=== PATIENT | female | born 1975 | race Hispanic/Latino ===

== ENCOUNTER → 2018-04-20 08:26 | Outpatient (CLI) | payer OTHER, SELFPAY ==
--- NOTE | 2018-04-20 08:29 | DI.US.S_ITS ---
PROCEDURE: US PELVIC COMPLETE INDICATIONS: LEFT OVARIAN CYST ON CT TECHNIQUE: Real-time scanning was performed of the pelvic organs, with image documentation. Additional endovaginal scanning was necessary due to incomplete visualization of the adnexal and endometrial structures by transabdominal scanning. COMPARISON: [facility], CT, CT CHEST ABDOMEN PELVIS WITH CONTRAST, 03/29/2018, 3:37. FINDINGS: Transabdominal scanning: Limited scanning through the kidneys shows no hydronephrosis. The kidneys measure 11.6 CM right and 10.8 CM left. No pathologic free abdominal or pelvic fluid. Endovaginal scanning: Uterus: Uterus is normal in size at 4.5 x 5.5 x 8.7 cm. The endometrium measures 5.3 mm in combined thickness. Ovaries: The right ovary is normal measuring 26 x 21 x 30 mm with normal appearing 15 mm follicle. The left ovary measures 30 x 31 x 35 mm and contains a simple appearing cyst that measures 2.7 x 2.8 x 3.2 cm. This corresponds to the left ovarian cyst on CT that measured 3.6 cm in maximum diameter. IMPRESSION: 1. Simple cyst in the left ovary shows maximum diameter of 3.2 cm, slightly smaller than on prior CT imaging. Simple cysts in the reproductive age group measuring less than 5 cm do not require followup. 2. Uterus and right ovary are unremarkable. Dictated by: Rajan Fontana M.D. on 04/20/2018 at 9:21 Approved by: Rajan Fontana M.D. on 04/20/2018 at 9:27
== END ==
PROVIDERS: Family Provider Family Medicine; PCP Family Medicine; Visit Provider Family Medicine
DX: N83.292 Other ovarian cyst, left side (principal)
CPT/HCPCS: 76856